=== PATIENT | male | born 1980 | race Two or more races ===

== ENCOUNTER 2017-05-04 00:08 | Emergency (ER) | payer OTHER ==
--- NOTE | 2017-05-04 00:41 | NUR ---
CALLED X4; NO ANSWER. INFORMED PT LEFT
== END 2017-05-04 00:44 | disposition left against medical advice (07) ==
LOC: ER 00:18
DX: Z53.21 Procedure and treatment not carried out due to patient leaving prior to being seen by health care provider (principal)